=== PATIENT | female | born 1975 | race American Indian/Alaskan Native ===

== ENCOUNTER 2021-06-30 12:18 | Inpatient (IN) | payer MEDICAID ==
--- NOTE | 2021-06-30 15:46 | Ultrasound Report ---
ULTRASOUND OBSTETRIC LIMITED INDICATION / CLINICAL INFORMATION: vag bleeding. Clinical Gestational Age (GA): 23.4 weeks.days COMPARISON: None available. FINDINGS: HEART RATE (beats per minute): No heart rate detected on color Doppler or M-mode AMNIOTIC FLUID INDEX (cm) = 0 (normal = 7-24 cm) PRESENTATION: Breech. ADDITIONAL FINDINGS: Placenta fundal without previa IMPRESSION: 1. Intrauterine demise Signer Name: Gautam Pringle MD Signed: 06/30/2021 2:30 PM Workstation Name: [id number]
[2021-06-30 16:07] LABS: Hematocrit 39.9 % (30.3-42.9); Hemoglobin 13.4 gm/dl (10.1-14.3); Mean Corpuscular HGB Conc 34 % (30-34); Mean Corpuscular Volume 83 fl (79-97); Platelet Count 252 K/mm3 (140-440); Red Blood Count 4.79 M/mm3 (3.65-5.03); Red Cell Distribution Width 14.3 % (13.2-15.2)
[2021-06-30] MEDS ORDERED: LOPERAMIDE 2 MG CAP PO PRN (18:49)
[2021-06-30] MEDS ORDERED: ePHEDrine SULFATE 50 MG/1 ML INJ IV PRN (18:49)
[2021-06-30] MEDS ORDERED: TERBUTALINE 1 MG/1 ML INJ SUB-Q PRN (18:49)
[2021-06-30] MEDS ORDERED: ACETAMINOPHEN 325 MG TAB PO PRN (18:49)
[2021-06-30] MEDS ORDERED: MINERAL OIL 30 ML ORAL LIQD PO PRN (18:49)
[2021-06-30] MEDS ORDERED: OXYTOCIN 10 UNIT/1 ML INJ IM PRN (18:49)
[2021-06-30] MEDS ORDERED: METHYLERGONOVINE MALEATE 0.2 MG/ML VIAL IM PRN (18:49)
[2021-06-30] MEDS ORDERED: fentaNYL 100 MCG/2 ML INJ IV PRN (18:49)
[2021-06-30] MEDS ORDERED: CARBOPROST TROMETHAMINE 250 MCG/1 ML INJ IM PRN (18:49)
[2021-06-30] MEDS ORDERED: LIDOCAINE (2%) 20 MG/1 ML VIAL 20 ML MDV INFILTRATI ONE (18:49)
[2021-06-30] MEDS ORDERED: miSOPROStol 200 MCG TAB VG SCH (19:00)
[2021-06-30] MEDS ORDERED: OXYTOCIN DRIP 30 UNITS/500 ML BAG IV SCH ×2 (19:00)
[2021-06-30] MEDS ORDERED: LACTATED RINGERS 1,000 ML IV SCH (19:00)
--- NOTE | 2021-06-30 22:35 | History and Physical Report ---
History of Present Illness Date of examination: 06/30/21 Date of admission: 06/30/21 18:49 Chief complaint: I have a demise History of present illness: Pt is a 45 year old who presents at 23 weeks with an IUFD. Patient's course had been uncomplicated up to this point except for maternal age. She was seen in the office today with complaint of spotting and cramping and ultrasound revealed absent heart tones. Past History Past Medical History: asthma Past Surgical History: cholecystectomy - Obstetrical History Expected Date of Delivery: 10/27/21 Actual Gestation: 23 Week(s) 1 Day(s) : 10 Para: 5 Number of Living Children: 5 Medications and Allergies Allergies Allergy/AdvReac Type Severity Reaction Status Date / Time No Known Allergies Allergy Unverified 06/30/21 13:15 Home Medications Medication Instructions Recorded Confirmed Last Taken Type Albuterol Mdi (or & Nicu Only) 2 puff PO Q4HR PRN 06/30/21 06/30/21 06/29/21 History [ProAir HFA Inhaler] Active Meds: Active Medications Acetaminophen (Acetaminophen 325 Mg Tab) 650 mg PO Q4H PRN PRN Reason: Pain, Mild (1-3) Butorphanol Tartrate (Butorphanol 2 Mg/1 Ml Inj) 2 mg IV Q2H PRN PRN Reason: Pain , Severe (7-10) Carboprost Tromethamine (Carboprost Tromethamine 250 Mcg/1 Ml Inj) 250 mcg IM ONCE PRN PRN Reason: Uterine Bleeding Ephedrine Sulfate (Ephedrine Sulfate 50 Mg/1 Ml Inj) 10 mg IV Q2M PRN PRN Reason: Hypotension Fentanyl (Fentanyl 100 Mcg/2 Ml Inj) 100 mcg IV Q2H PRN PRN Reason: Pain,Severe (7-10) LABOR PAIN Oxytocin/Sodium Chloride (Pitocin/Ns 30 Unit/500ml) 30 units in 500 mls @ 2 mls/hr IV TITR ANTHONY; Protocol Lactated Ringer's (Lactated Ringers) 1,000 mls @ 125 mls/hr IV DIRECT ANTHONY Last Admin: 06/30/21 20:37 Dose: 125 mls/hr Documented by: Oxytocin/Sodium Chloride (Pitocin/Ns 30 Unit/500ml) 30 units in 500 mls @ 40 mls/hr IV TITR ANTHONY; Protocol Loperamide HCl (Loperamide 2 Mg Cap) 2 mg PO ONCE PRN PRN Reason: give with Hemabate Methylergonovine Maleate (Methylergonovine Maleate 0.2 Mg/Ml Vial) 0.2 mg IM ONCE PRN PRN Reason: Uterine Bleeding Mineral Oil (Mineral Oil 30 Ml Oral Liqd) 30 ml PO QHS PRN PRN Reason: Constipation Misoprostol (Misoprostol 200 Mcg Tab) 200 mcg VG Q6HR ANTHONY Last Admin: 06/30/21 20:37 Dose: 200 mcg Documented by: Oxytocin (Oxytocin 10 Unit/1 Ml Inj) 10 unit IM ONCE PRN PRN Reason: Uterine Bleeding Terbutaline Sulfate (Terbutaline 1 Mg/1 Ml Inj) 0.25 mg SUB-Q ONCE PRN PRN Reason: Hyperstimulation/Hypertonicity Review of Systems All systems: negative Constitutional: fatigue Breasts: deferred Gastrointestinal: abdominal pain Genitourinary: vaginal bleeding, contractions - Vital Signs Vital signs: Vital Signs Pulse BP 111 H 122/75 06/30/21 13:41 06/30/21 13:41 Temp Pulse Resp BP Pulse Ox 99.7 F H 86 18 119/79 06/30/21 16:02 06/30/21 19:12 06/30/21 16:02 06/30/21 19:12 - Physical Exam Breasts: Positive: deferred Cardiovascular: Regular rate, Normal S1, Normal S2 Lungs: Positive: Clear to auscultation, Normal air movement Abdomen: Positive: normal appearance, soft, normal bowel sounds. Negative: distention, tenderness Genitourinary (Female): Positive: normal external genitalia, normal perenium Vulva: both: normal Vagina: Positive: normal moisture. Negative: discharge Cervix: Negative: lesion, discharge Uterus: Positive: normal size, normal contour Adnexa: both: normal Anus/Rectum: Positive: normal perianal skin, heme negative. Negative: rectal mass, hemorrhoids Extremities: Deep Tendon Reflex Grade: Normal +2 - Obstetrical FHR: other Results Result Diagrams: 06/30/21 15:13 All other labs normal. Assessment and Plan IUP at 23 weeks with IUFD. Admit for induction of labor and delivery. Begin intravaginal Cytotec for cervical ripening. Patient may have epidural when ready. anticipate
[2021-07-01] MEDS: BUTORPHANOL 2 MG/1 ML INJ IV PRN ×3 (01:29→06:52)
[2021-07-01] MEDS ORDERED: miSOPROStol 200 MCG TAB VG SCH (02:30)
--- NOTE | 2021-07-01 08:34 | Procedure Note ---
OB Delivery Note - Delivery Date of Delivery: 07/01/21 Surgeon: KAREN DONNELLY Estimated blood loss: <100cc - Vaginal Delivery presentation: vertex Delivery position: OA Intrapartum events: labor-<37 weeks Delivery induction: misoprostol Delivery monitor: external uterine Route of delivery: Delivery placenta: spontaneous Episiotomy: none Anesthesia: none Delivery comments: Nonviable female delivered with placenta and sac in toto. Minimal to no vaginal bleeding noted. No lacerations. Patient tolerated procedure well. Excellent hemostasis. - A at 1 minute: 0 at 5 minutes: 0 Gender: Female
[2021-07-01] MEDS ORDERED: PROMETHAZINE 25 MG RECT SUPP PR PRN (09:00)
[2021-07-01] MEDS ORDERED: HYDROcodone/ACETAMINOPHEN 5-325 MG TAB PO PRN (09:00)
[2021-07-01] MEDS ORDERED: PROMETHAZINE 25 MG TAB PO PRN (09:00)
[2021-07-01] MEDS ORDERED: OXYTOCIN DRIP 30 UNITS/500 ML BAG IV SCH (09:00)
[2021-07-01] MEDS ORDERED: ONDANSETRON 4 MG/2 ML INJ IV PRN (09:00)
[2021-07-01] MEDS ORDERED: diphenhydrAMINE 25 MG CAP PO PRN (09:00)
[2021-07-01] MEDS ORDERED: IBUPROFEN 600 MG TAB PO SCH (10:00)
[2021-07-01 15:05] VITALS: BP 119/70
--- NOTE | 2021-07-01 15:24 | Discharge Summary ---
Providers - Providers Date of Admission: 06/30/21 18:49 Date of discharge: 07/01/21 Attending physician: KAREN DONNELLY Primary care physician: KAREN DONNELLY Hospitalization Reason for admission: IUFD Delivery: Other procedures: none Discharge diagnosis: other (iufd), delivery baby: female Condition at discharge: Stable Disposition: DC-01 TO HOME OR SELFCARE Plan - Discharge Medications Prescriptions: Ibuprofen [Motrin] 800 mg PO Q8HR PRN #40 tablet PRN Reason: Pain, Mild (1-3) - Provider Discharge Summary Activity: routine, no sex for 6 weeks, no heavy lifting 4 weeks, no strenuous exercise Instructions: routine Additional instructions: [] Smoking cessation referral if applicable(refer to patient education folder for contact #) [] Refer to [facility] Booklet Call your doctor immediately for: * Fever > 100.5 * Heavy vaginal bleeding ( >1 pad per hour) * Severe persistent headache * Shortness of breath * Reddened, hot, painful area to leg or breast * Drainage or odor from incision. * Keep incision clean and dry at all times and follow doctor's instructions regarding bathing/showering - Follow up plan Follow up: KAREN DONNELLY MD [Primary Care Provider] - 7 Days Forms: [facility] Discharge Summary, Work/School Excuse Out Patient
[2021-07-01] MEDS ORDERED: MAGNESIUM HYDROXIDE (MOM) ORAL LIQD UDC PO PRN (22:00)
== END 2021-07-01 15:35 | disposition home or self-care (01) | DRG 775 ==
LOC: TRG 12:18 → APU 12:20 → LD 15:43 → TRG 18:49 → LD 18:49
PROVIDERS: ADMIT Obstetrics & Gynecology; ATTEND Obstetrics & Gynecology
PROC: 10E0XZZ Delivery of Products of Conception, External Approach (ICD-10-PCS; principal; 2021-07-01)
DX: O36.4XX0 Maternal care for intrauterine death, not applicable or unspecified (principal); Z37.1 Single stillbirth; Z3A.23 23 weeks gestation of pregnancy; Z90.49 Acquired absence of other specified parts of digestive tract; O60.12X0 Preterm labor second trimester with preterm delivery second trimester, not applicable or unspecified; J45.909 Unspecified asthma, uncomplicated
CPT/HCPCS: 36415; 59025; 76815; 85027; 86592; 86850; 86900; 86901; 88305; G0378; J0595; J2590; J7120